=== PATIENT | male | born 1985 | race Caucasian/White ===

== ENCOUNTER 2022-11-25 10:12 | Emergency (ER) | payer MEDICAID ==
[~2022-11-25] VITALS: Ht 182.9 cm; Wt 79.5 kg
[2022-11-25] MEDS ORDERED: LORazepam 2 mg/ml vial IV ONE ×2 (10:20→10:45)
[2022-11-25] MEDS ORDERED: metoclopramide 5 mg/ml inj IV ONE (10:20)
--- NOTE | 2022-11-25 10:49 | NUR ---
LAB AT BEDSIDE COLLECTING BLOOD.
--- NOTE | 2022-11-25 10:53 | NUR ---
SEIZURE PADS APPLIED TO XI.
[2022-11-25 11:06] LABS: BASOPHILS % (AUTO) 0.2 % (0-1); EOSINOPHILS % (AUTO) 0.2 % (0-6); HEMOGLOBIN 14.5 g/dl (14.0-17.9); LYMPHOCYTES # (AUTO) 1.5 X10'3 (1.1-4.8); LYMPHOCYTES % (AUTO) 15.1 % (21-51); MEAN CORPUSCULAR HEMOGLOBIN 30.1 PG (27.0-31.0); MEAN CORPUSCULAR HGB CONC 33.1 g/dL (33.0-36.5); MEAN CORPUSCULAR VOLUME 91.1 FL (78-98); MEAN PLATELET VOLUME 9.1 FL (7.4-10.4); MONOCYTES # (AUTO) 0.6 X10'3 (0-0.9); MONOCYTES % (AUTO) 5.6 % (2-12); NEUTROPHILS # (AUTO) 8.1 X10'3 (1.8-7.7); NEUTROPHILS % (AUTO) 78.9 % (42-75); PLATELET COUNT 226 X10'3 (140-440); RED BLOOD COUNT 4.82 X10'6 (4.70-6.10); RED CELL DISTRIBUTION WIDTH 14.7 % (11.5-14.5); WHITE BLOOD COUNT 10.3 X10'3 (4.5-11.0)
[2022-11-25 11:16] LABS: ALANINE AMINOTRANSFERASE 28 U/L (12-78); ALBUMIN/GLOBULIN RATIO 1.3 (1.1-1.5); ALKALINE PHOSPHATASE 50 IU/L (46-116); ANION GAP 14 (8-16); ASPARTATE AMINO TRANSFERASE 17 U/L (10-37); BILIRUBIN,TOTAL 0.5 MG/DL (0.1-1.0); BLOOD UREA NITROGEN 12 MG/DL (7-18); BUN/CREATININE RATIO 9.7 (10.0-20.0); CALCIUM 9.2 MG/DL (8.5-10.1); CHLORIDE 105 MMOL/L (99-107); CREATININE 1.24 MG/DL (0.60-1.10); GLUCOSE 99 MG/DL (70-104); PHENYTOIN (DILANTIN) < 0.5 UG/ML (10.0-20.0); POTASSIUM 3.7 MMOL/L (3.5-5.1); SODIUM 141 MMOL/L (135-145); TOTAL PROTEIN 7.1 G/DL (6.4-8.2); eGFR 64 ML/MIN
--- NOTE | 2022-11-25 11:17 | NUR ---
PT DAD AT BEDSIDE. HE WILL HELP ANSWER ALLERGY AND HX QUESTIONS.
--- NOTE | 2022-11-25 12:52 | NUR ---
RN CALLED PHARMACY AND REQ THEM TO MAKE AND BRING CEREBYX. PHARM WILL DELIVER.
[2022-11-25] MEDS ORDERED: FOSPHENYTOIN IV ONE (13:00)
[2022-11-25] MEDS ORDERED: FOSphenytoin 500mg inj. 1,000 MG in normal saline 100ml IV soln 100 ML IV ONE (13:00)
[2022-11-25] MEDS ORDERED: NORMAL SALINE IV ONE (13:00)
--- NOTE | 2022-11-25 13:15 | NUR ---
PT TAKEN TO CT.
[2022-11-25 14:56] VITALS: BP 10/83
== END 2022-11-25 15:03 | disposition home or self-care (01) ==
LOC: EDBD 10:13 → ER 10:13
DX: G40.909 Epilepsy, unspecified, not intractable, without status epilepticus (principal)
CPT/HCPCS: 36415; 80053; 80177; 80185; 85025; 93005; 96365; 96375; 99284; J2060; J2765; J3490; Q2009